=== PATIENT | male | born 1945 | race Caucasian/White ===

== ENCOUNTER 2024-04-02 21:55 | Emergency (ER) | payer MEDICARE ==
[~2024-04-02] VITALS: Ht 147.3 cm; Wt 71.0 kg
[2024-04-02 22:06] VITALS: TEMP 98.4; O2SAT 98
[2024-04-02 22:56] VITALS: BP 153/80; PULSE 68; RESP 18
[2024-04-02] MEDS: HYDROCODONE/ACETAMINOPHEN 5/325MG TABLET PO ONE (22:56)
[2024-04-02] MEDS ORDERED: IBUP-2028 MT (23:44)
[2024-04-02] MEDS ORDERED: CYCL5TAB3 MT (23:44)
== END 2024-04-03 00:04 | disposition home or self-care (01) ==
LOC: ER 21:55
DX: M54.50 Low back pain, unspecified (principal); E78.00 Pure hypercholesterolemia, unspecified; I10 Essential (primary) hypertension; Z79.899 Other long term (current) drug therapy
CPT/HCPCS: 72100; 99283